=== PATIENT | female | born 1945 | race Caucasian/White ===

== ENCOUNTER → 2019-01-12 | Outpatient (CLI) | payer MEDICARE, MEDICAID ==
--- NOTE | 2019-01-12 21:54 | RAD ---
Exam: Left ankle 3 views. Left foot 3 views. INDICATION: Injury TECHNIQUE: Frontal, lateral and oblique views of the left foot and left ankle. Comparisons: None FINDINGS: Foot: Bone mineralization is normal. No acute or healed fractures. Soft tissues are unremarkable. Joint spaces are well-maintained. Ankle: Bone mineralization is normal. Chronic fracture deformity at the distal tibial diaphysis is noted. No acute fractures are seen. Soft tissues are unremarkable. IMPRESSION: 1. No acute osseous abnormality of the left foot. 2. No acute osseous abnormality of the left ankle. Electronically signed by: Gisela Mar MD (01/12/2019 9:52 PM) [facility]
== END | disposition home or self-care (01) ==
LOC: RAD 18:50
PROVIDERS: ATTEND Family Medicine
DX: M84.462A Pathological fracture, left tibia, initial encounter for fracture (principal)
CPT/HCPCS: 73610; 73630

== ENCOUNTER → 2020-11-15 | Outpatient (CLI) | payer MEDICAID, MEDICARE ==
[~2020-11-15] MED LIST: IBUP-1027 PO; INSU100V37 SQ; LEVO50TA5 PO; LISI1TAB39 PO; SEMA0.25 SQ
[2020-11-15 14:01] LABS: BASO # 0.1 x10^3/uL (0.0-0.2); BASO % 1 % (0-3); EOS # 0.2 x10^3/uL (0.0-0.7); EOS % 2 % (0-3); HEMATOCRIT 40.7 % (36.0-47.0); HEMOGLOBIN 13.9 g/dL (12.0-15.5); LYMPH # 2.6 x10^3/uL (1.0-4.8); LYMPH % 24 % (24-48); MEAN CORPUSCULAR HEMOGLOBIN 30 pg (25-35); MEAN CORPUSCULAR HGB CONC 34 g/dL (31-37); MEAN CORPUSCULAR VOLUME 87 fL (79-100); MONO # 0.7 x10^3/uL (0.0-1.1); MONO % 6 % (0-9); NEUT # 7.2 x10^3/uL (1.8-7.7); NEUT % 67 % (31-73); PLATELET COUNT 176 x10^3/uL (140-400); RED BLOOD COUNT 4.71 x10^6/uL (3.50-5.40); RED CELL DISTRIBUTION WIDTH 13.3 % (11.5-14.5); WHITE BLOOD COUNT 10.8 x10^3/uL (4.0-11.0)
[2020-11-15 14:10] LABS: PROTHROMBIN TIME PATIENT 13.1 SEC (11.7-14.0)
[2020-11-15 14:14] LABS: ALBUMIN 3.2 g/dL (3.4-5.0); ALBUMIN/GLOBULIN RATIO 0.7 (1.0-1.7); CALCIUM 9.2 mg/dL (8.5-10.1); CREATININE 1.6 mg/dL (0.6-1.0); GFR 31.7; POTASSIUM 4.1 mmol/L (3.5-5.1); TOTAL BILIRUBIN 0.4 mg/dL (0.2-1.0); TOTAL PROTEIN 7.5 g/dL (6.4-8.2)
[2020-11-16 07:18] LABS: HEMOGLOBIN A1C 5.2 % (4.8-5.6)
== END ==
LOC: SURGPAT 13:27
PROVIDERS: ATTEND Specialist
DX: Z01.812 Encounter for preprocedural laboratory examination (principal); Z20.822 Contact with and (suspected) exposure to COVID-19; C50.911 Malignant neoplasm of unspecified site of right female breast; C77.3 Secondary and unspecified malignant neoplasm of axilla and upper limb lymph nodes; Z79.899 Other long term (current) drug therapy
CPT/HCPCS: 36415; 80053; 83036; 85025; 85610; 85730; U0003; U0005

== ENCOUNTER 2020-11-20 10:49 | Day surgery (SDC) | payer MEDICARE ==
[2020-11-15 13:57] VITALS: BP 90/50
[~2020-11-20] VITALS: Ht 167.6 cm; Wt 100.0 kg
[~2020-11-20 10:49] MED LIST changes: +HYDROmorphone 2 MG/ML VIAL IVP PRN; -IBUP-1027 PO; -INSU100V37 SQ; +IV RINGERS,LACTATED 1000ML 1,000 ML IV SCH; -LEVO50TA5 PO; -LISI1TAB39 PO; +PROCHLORPERAZINE 10 MG/2 ML VIAL. IVP PRN; +ceFAZolin SODIUM IV Push 1 GM VIAL. IVP PRN; +fentaNYL PF VIAL 100 MCG/2 ML VIAL IVP PRN
[2020-11-20] MEDS ORDERED: LIDOCAINE 2% PF 5 ML VIAL. ONE (10:55)
[2020-11-20] MEDS ORDERED: fentaNYL PF VIAL 100 MCG/2 ML VIAL ONE ×2 (10:55→17:03)
[2020-11-20] MEDS ORDERED: DEXAMETHASONE SOD PHOS 4 MG/ML VIAL ONE (10:55)
[2020-11-20] MEDS ORDERED: PROPOFOL 10 MG/ML (20ML) VIAL. IV ONE (10:55)
[2020-11-20] MEDS ORDERED: FAMOTIDINE 20 MG/2 ML VIAL ONE (10:55)
[2020-11-20] MEDS ORDERED: LISI1TAB20 PO (11:21)
[2020-11-20] MEDS ORDERED: LEVO50TA5 PO (11:21)
[2020-11-20] MEDS ORDERED: INSU100V37 SQ (11:21)
[2020-11-20 11:23] VITALS: BP 129/56
[2020-11-20] MEDS ORDERED: INSULIN LISPRO 100 UNIT/ML 3ML VIAL for OP,RR ONLY. SQ PRN (11:30)
[2020-11-20] MEDS ORDERED: DEXTROSE 50% 25 GM / 50ML DISP.SYRIN. IV ONE ×4 (11:35→14:18)
--- NOTE | 2020-11-20 12:30 | PDOC ---
SURGICAL PROGRESS NOTE DATE: 11/20/20 TIME: 12:29 No change in dictate H&P. done todeay 10/20/2020 Vital Signs Vital Signs Date Time Temp Pulse Resp B/P (MAP) Pulse Ox O2 Delivery O2 Flow Rate FiO2 11/20/20 11:26 98.0 91 20 129/56 92 Room Air 98.0 Labs Laboratory Tests Test 11/20/20 11:29 11/20/20 11:57 Glucose (Fingerstick) 56 mg/dL (70-99) 90 mg/dL (70-99) Laboratory Tests Test 11/20/20 11:29 11/20/20 11:57 Glucose (Fingerstick) 56 mg/dL (70-99) 90 mg/dL (70-99) Justicifation of Admission Dx: Justifications for Admission: Justification of Admission Dx: Yes ARABELLA REIS MD Nov 20, 2020 12:30
--- NOTE | 2020-11-20 12:35 | PDOC ---
SURGICAL PROGRESS NOTE DATE: 11/20/20 TIME: 12:30 Subjective Op Note: Surgeon...............................Tesfaye Pre and post op diag.............cancer right breast with mets to axillary node anesthesia...........................general Procedure............................right partial mastectomy and axillary dissection. Drains..................................large Geoffrey drain Fluids..................................see anesthesia sheet Blood loss............................30cc Condition..............................Condition Vital Signs Vital Signs Date Time Temp Pulse Resp B/P (MAP) Pulse Ox O2 Delivery O2 Flow Rate FiO2 11/20/20 11:26 98.0 91 20 129/56 92 Room Air 98.0 Labs Laboratory Tests Test 11/20/20 11:29 11/20/20 11:57 Glucose (Fingerstick) 56 mg/dL (70-99) 90 mg/dL (70-99) Laboratory Tests Test 11/20/20 11:29 11/20/20 11:57 Glucose (Fingerstick) 56 mg/dL (70-99) 90 mg/dL (70-99) Justicifation of Admission Dx: Justifications for Admission: Justification of Admission Dx: Yes ARABELLA REIS MD Nov 20, 2020 12:35
--- NOTE | 2020-11-20 13:19 | HP ---
ADMIT DATE: 11/20/2020 HISTORY OF PRESENT ILLNESS: She is referred because of a right breast mass, which she states has been there for about 2 months. 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 Martell because of the mass. She also had a sonogram and mammogram, which revealed a mass and also axillary node enlargement. She did have a biopsy of this and it proved to be cancer in the node and the mass. She has no real symptoms from this at present. PAST MEDICAL HISTORY: Shows that she has had a cholecystectomy. She does have diabetes and takes insulin for that and takes lisinopril for hypertension. ALLERGIES: INCLUDE CODEINE, WHICH SHE STATES MAKES HER SOMEWHAT LIGHTHEADED. She otherwise did well with it. SOCIAL HISTORY: Shows that she does not use illicit drugs, smoke or drink alcoholic beverages. REVIEW OF SYSTEMS: Except for the inability to see, she can get around and walk and has no other major problems. PHYSICAL EXAMINATION: HEAD, EYES, EARS, NOSE AND THROAT: Grossly normal. 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 Other parameters were unremarkable. CHEST: Clear bilaterally to auscultation. HEART: No murmurs, heaves, or friction rubs were noted with the heart and the rate was 70 beats per minute and was regular. BREASTS: The left breast and axillary area was negative. The right breast did have about a 4-6 cm in diameter clinically a mass in the upper outer quadrant of the right breast and the biopsy site was noted. The nodes are not equally palpable at this point. ABDOMEN: Grossly normal. No masses. She has a scar of previous surgery and looked like it was an open cholecystectomy that she had. EXTREMITIES: Grossly unremarkable. IMPRESSION: 1. Hypertension. 2. Diabetes. 3. Cancer of the right breast. PLAN: We will plan per the patient's request, a partial mastectomy and axillary dissection. KETAN/FIFI/HORACIO DR: Tomas TID: [id number] MTDD
[2020-11-20] MEDS ORDERED: PHENYLEPHRINE in 0.9% NACL PF 1 MG/10 ML SYRINGE. IV ONE (13:34)
[2020-11-20] MEDS ORDERED: ePHEDrine PF IN SALINE 50 MG/10 ML SYRINGE. IV ONE (14:02)
[2020-11-20] MEDS ORDERED: SEVOFLURANE > 120 MINUTES. IH ONE (16:32)
--- NOTE | 2020-11-20 16:51 | DISCH ---
DISCHARGE INSTRUCTIONS Condition on Discharge Condition on Discharge: Stable Activity After Discharge Activity Instructions for Disc: Avoid exertion Diet after Discharge Additional Diet Restrictions: as pre op Wound Incision Care Other wound/incision instructi: . check [id number] directed. Follow-Up Follow up with: call anc make appt to see me Thursday..6 days. ARABELLA REIS MD Nov 20, 2020 16:51
[2020-11-20] MEDS ORDERED: IBUP-1027 PO (17:05)
[2020-11-20] MEDS: fentaNYL PF VIAL 100 MCG/2 ML VIAL IVP PRN ×2 (17:06→17:29)
[2020-11-20] MEDS ORDERED: IBUPROFEN 400 MG TABLET. PO ONE (17:30)
[2020-11-20] MEDS ORDERED: MORPHINE SULFATE 2 MG/ML INJ. ONE (17:44)
[2020-11-20] MEDS: MORPHINE SULFATE 2 MG/ML INJ. IVP PRN ×2 (17:47→17:58)
[2020-11-20 18:14] VITALS: BP 130/63
--- NOTE | 2020-11-21 12:09 | OP ---
DATE OF SURGERY: 11/20/2020 SURGEON: Charles Carlin MD PREOPERATIVE DIAGNOSIS: Biopsy-proven carcinoma of the right breast with metastasis to the axillary lymph node on the right. ANESTHESIA: General. PROCEDURE: Partial mastectomy with axillary dissection. TECHNIQUE: Under general anesthesia, the patient was properly prepped and draped in routine fashion. The arm was completely prepped and we were prepared to do the ramiro maneuver if possible. The lesion is being about 4-6 cm in the upper outer quadrant of the right breast. We made an incision in an oblique fashion following the skin lines in the extreme upper outer quadrant on the right breast with standing to the axilla. We are going to do the axillary dissection and therefore we extended the incision. We did this with a 15 blade went into the subQ. We did in a fusiform fashion, taking some of the skin over the mass as we did not want to have any infiltration into the subQ and skin left. As such, we resected that, we pulled up and then used cautery, mostly for the dissection going completely around the mass. We did feel a second mass more medial and then entirely took it along with the breast tissue. We removed almost the upper outer quadrant of the breast. We got down to the muscle and went over laterally to the edge of the pectoralis major muscle. The lesion has been totally removed and still attached. We then identified the border of the pectoralis major muscle and then the pectoralis minor. We did the dissection, taking the lymph nodes from below the axillary vein and we saw we did not dissect it out. We used the Harmonic scalpel and clips to divide small vessels and slowly removed the axillary contents. We then removed the lesion from the lateral chest wall and slowly dissected free the axillary contents. We did identify the long thoracic and thoracodorsal nerves, which were not damaged and were functioning at the end of the case. We slowly removed all of the axillary contents again using the Harmonic scalpel and clamping with small vessels. The lesion in the axillary contents now totally removed. We inspected the area and small bleeders were cauterized. The nerves were left intact. We then placed a large Geoffrey drain, one going laterally to the axilla and one a little more medially going up into the breast that we took so much of the breast tissue out. We approximated the breast tissue with interrupted 3-0 Vicryl and sutured this to the fascia of the muscle as best we could to help obliterate the space. These drains were sutured in place using 2-0 silk and we then proceeded to close the wound. We used 3-0 Vicryl and 4-0 Vicryl for the deeper subcutaneous and deep dermis and then used a skin stapler for the skin. The apparatus of the suction worked well as there was good adherence of the skin flaps down to the chest wall. Sterile dressing was applied and the procedure was then terminated. The wound was then inspected and all was well. The blood loss was about 40-50 mL. Drains were the 2 large Geoffrey drains. The fluids given can be obtained from the anesthesia sheet and the condition of the patient is satisfactory as she has returned to the recovery room. KETAN/CANDY/CONNER DR: Tomas TID: [id number] MTDD
--- NOTE | 2020-11-23 18:06 | PATHOLOGY ---
[facility] Accession Number: [id number] . 01 Material submitted: . PART A: breast - RIGHT PARTIAL MASTECTOMY. Modifiers: right PART B: axillary tail of breast - RIGHT AXILLARY CONTENTS. Modifiers: right . 02 Diagnosis: A. Segment of breast tissue and attached axillary lymph nodes, right partial mastectomy: - Invasive ductal carcinoma, histologic grade 3, forming a tumor mass measuring 4.0 cm in greatest dimension. - Invasive carcinoma is approximately 1.5 mm from the closest (deep) margin of resection. - Metastatic carcinoma involving one of nine axillary lymph nodes (/). - No lymphovascular tumor invasion identified. - Fibrocystic changes with focal mild to moderate ductal epithelial hyperplasia. - Atypical lobular hyperplasia, focal. . B. Adipose tissue and lymph nodes, right axillary contents: - Five lymph nodes negative for tumor (0/5). . 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 . Surgical Pathology Cancer Case Summary INVASIVE CARCINOMA OF THE BREAST: Resection . Procedure ___ Other: Partial mastectomy . Specimen Laterality ___ Right . + Tumor Site + ___ Other: Outer breast . Tumor Size ___ Greatest dimension of largest invasive focus >1 mm: 40 mm . Histologic Type ___ Invasive carcinoma of no special type (ductal) . Histologic Grade (Granite Canon Histologic Score) Glandular (Acinar)/Tubular Differentiation ___ Score 3 (<10% of tumor area forming glandular/tubular structures) . Nuclear Pleomorphism ___ Score 3 (vesicular nuclei, often with prominent nucleoli, exhibiting marked variation in size and shape, occasionally with very large and bizarre forms) . Mitotic Rate ___ Score 3 . Overall Grade ___ Grade 3 (scores of 8 or 9) . + Tumor Focality + ___ Single focus of invasive carcinoma . Ductal Carcinoma In Situ (DCIS) ___ Not identified . Margins Invasive Carcinoma Margins ___ Uninvolved by invasive carcinoma Distance from closest margin: ___ Specify 1.5 mm . + Specify closest margin(s): Deep margin . + Distance from other margins: + ___ Superior: 3 mm . Regional Lymph Nodes ___ Involved by tumor cells Number of Lymph Nodes with Macrometastases (>2 mm): 1 . Size of Largest Metastatic Deposit: 5.5 mm . Extranodal Extension ___ Not identified . Total Number of Lymph Nodes Examined: 14 . Treatment Effect in the Breast ___ No known presurgical therapy . + Lymphovascular Invasion + ___ Not identified . Pathologic Stage Classification (pTNM, AJCC 8th Edition) Primary Tumor (pT) ___ pT2: Tumor >20 mm but less than or equal to 50 mm in greatest dimension . Regional Lymph Nodes (pN) ___ pN1a: Metastases in 1 to 3 axillary lymph nodes, at least 1 metastasis larger than 2.0 mm . + Additional Pathologic Findings + Specify: See diagnoses . + Ancillary Studies + ___ Breast Biomarker Testing Performed on Previous Biopsy + Testing Performed on Case Number: [id number] + Estrogen Receptor (ER) + ___ Positive (greater than 10% of cells demonstrate nuclear positivity) 83.0% + Progesterone Receptor (PgR) + ___ Positive 54.1% . + HER2 + ___ Negative (Score 1+) . + ___ Ki-67 percentage of positive nuclei: 55.0% . + Microcalcifications + ___ Present in invasive carcinoma + ___ Present in non-neoplastic tissue . (JPM:pramod; 11/23/2020) [facility] [place] 11/23/2020 1715 Local . 02 Electronically signed: . Luis Xie MD, Pathologist NPI- [id number] . 01 Gross description: . A. The specimen is received in formalin, labeled "Joana Russo, right partial mastectomy" and consists of 276 g unoriented partial lumpectomy (9.5 x 7.7 x 5.2 cm) which is surfaced with an unremarkable daigle ellipse of skin (9.6 x 0.7 cm). The specimen also displays an attached portion of axillary tail (16.0 x 8.0 x 0.2 cm). The specimen is oriented using the skin as the anterior surface and the axillary tail as the lateral aspect. No needle localization wire is in place. The margins are inked as follows: anterior green, inferior blue, superior red, lateral (including axillary tail) orange, medial yellow and posterior black. Sectioning reveals a daigle-pink, focally well-circumscribed and focally ill-defined, slightly whorled mass (4.0 cm superior to inferior x 3.7 cm medial to lateral x 3.0 cm superficial to deep) that contains a silver metallic spiral hooked biopsy clip (0.2 x 0.2 x 0.2 cm). The mass abuts and is suspicious for involving the deep and inferior margins, and comes to within 0.2 cm from the superior margin, 1.9 cm from the medial margin, 2.3 cm from the lateral margin, and 1.1 cm from the superficial margin. The remaining cut surfaces display approximately 10% fibrous tissue. Ten candidate lymph nodes (ranging from 0.8 x 0.7 x 0.3 cm to 2.1 x 1.5 x 0.9 cm) are identified, 1 of which is grossly positive. Photographs are taken and premium service representative sections to include the entirety of the biopsy cavity and candidate lymph nodes are submitted as follows: A1-A2: Deep margin nearest mass, represented A3-A4: Anterior margin nearest mass, represented A5-A6: Biopsy cavity, entirely submitted A7-A8: Superior margin nearest mass, represented A9-A10: Medial margin nearest mass, represented A 11: Lateral margin nearest mass, represented A12-A16: Mass, represented A17: 1 grossly positive candidate lymph node, represented A18-A19: 1 serially sectioned candidate lymph node, entirely submitted A20-A21: 1 serially sectioned candidate lymph node, entirely submitted A22-A25: 1 serially sectioned candidate lymph node, entirely submitted A26-A30: 1 sectioned candidate lymph node within each cassette, entirely submitted A31-A33: 1 serially sectioned candidate lymph node, entirely submitted The cold ischemic time and time placed in formalin are not provided. The approximate total time in formalin is greater than 6 and less than 72 hours. . B. The specimen is received in formalin, labeled "Joana Russo, right axillary contents" and consists of multiple irregular, disrupted fatty tissues (4.5 x 3.3 x 1.6 cm cm in aggregate) that contains 5 candidate lymph nodes ranging from 0.5 x 0.4 x 0.2 cm to 1.3 x 1.2 x 0.7 cm, the largest of which is previously, partially disrupted. Sectioning reveals unremarkable cut surfaces. Laborer Syrup Machine sections to include the entirety of the candidate lymph nodes are submitted as follows: B1-B2: 1 serially sectioned candidate lymph node within each cassette, entirely submitted B3: 2 intact candidate lymph nodes, differentially inked black and red, entirely submitted B4: 1 serially sectioned candidate lymph node, entirely submitted ([place]-SPARKS; 11/21/2020) DKA/DKA 11/21/2020 1838 Local . 02 Pathologist provided ICD-10: C50.911, C77.3, N60.11, N62, N60.82 . 02 CPT . 863934, 551816 Specimen Comment: A courtesy copy of this report has been sent to [phone] Specimen Comment: Report sent to Specimen Comment: A duplicate report has been generated due to demographic updates. Performed at: 01 [facility] [address] [facility] [address] [facility] [address], [place] [id number] MD Enrike Hong MD Phone: [phone] Performed at: 02 [facility] [address] [place], [place] [id number] MD Luis Xie MD Phone: [phone]
== END 2020-11-20 18:45 | disposition home or self-care (01) ==
LOC: SURG 10:49
PROVIDERS: ATTEND Specialist
DX: C50.911 Malignant neoplasm of unspecified site of right female breast (principal); C77.3 Secondary and unspecified malignant neoplasm of axilla and upper limb lymph nodes; N60.11 Diffuse cystic mastopathy of right breast; N60.82 Other benign mammary dysplasias of left breast; N62 Hypertrophy of breast; I10 Essential (primary) hypertension; E66.9 Obesity, unspecified; E03.9 Hypothyroidism, unspecified; E11.9 Type 2 diabetes mellitus without complications; F41.9 Anxiety disorder, unspecified; F32.9 Major depressive disorder, single episode, unspecified; Z90.49 Acquired absence of other specified parts of digestive tract; Z98.890 Other specified postprocedural states; Z79.899 Other long term (current) drug therapy; Z79.4 Long term (current) use of insulin; Z88.5 Allergy status to narcotic agent
CPT/HCPCS: 19301; 82962; A4930; A6253; A6402; A6403; A6457; J0690; J1100; J2270; J2370; J2704; J3010; 88305; 88309; J3490

== ENCOUNTER → 2021-01-14 | Outpatient (CLI) | payer MEDICARE ==
[~2021-01-14] MED LIST changes: -HYDROmorphone 2 MG/ML VIAL IVP PRN; +IBUP-1027 PO; +INSU100V37 SQ; -IV RINGERS,LACTATED 1000ML 1,000 ML IV SCH; +LEVO50TA5 PO; +LISI1TAB39 PO; -PROCHLORPERAZINE 10 MG/2 ML VIAL. IVP PRN; -ceFAZolin SODIUM IV Push 1 GM VIAL. IVP PRN; -fentaNYL PF VIAL 100 MCG/2 ML VIAL IVP PRN
== END ==
LOC: LAB 13:48
PROVIDERS: ATTEND Specialist
DX: Z01.812 Encounter for preprocedural laboratory examination (principal); Z20.822 Contact with and (suspected) exposure to COVID-19
CPT/HCPCS: U0003; U0005

== ENCOUNTER 2021-01-15 08:50 | Day surgery (SDC) | payer MEDICARE ==
[~2021-01-15] VITALS: Ht 167.6 cm; Wt 100.0 kg
[~2021-01-15 08:50] MED LIST changes: +HYDROmorphone 2 MG/ML VIAL IVP PRN; +IV RINGERS,LACTATED 1000ML 1,000 ML IV SCH; +MORPHINE SULFATE 2 MG/ML INJ. IVP PRN; +PROCHLORPERAZINE 10 MG/2 ML VIAL. IVP PRN; +ceFAZolin SODIUM IV Push 1 GM VIAL. IVP PRN; +fentaNYL PF VIAL 100 MCG/2 ML VIAL IVP PRN
[2021-01-15 09:21] VITALS: BP 159/76
[2021-01-15] MEDS ORDERED: INSULIN LISPRO 100 UNIT/ML 3ML VIAL for OP,RR ONLY. SQ PRN (09:30)
[2021-01-15] MEDS ORDERED: BUPIVACAINE-EPI 0.5% 30 ML VIAL KIT. ONE (09:48)
[2021-01-15] MEDS ORDERED: HEPARIN PF 500 UNIT/5 ML DISP.SYRIN. IVP ONE ×2 (09:48→11:21)
[2021-01-15] MEDS ORDERED: IOHEXOL 300 MG/ML 50 ML VIAL. ONE (09:48)
[2021-01-15] MEDS ORDERED: LIDOCAINE 2% PF 5 ML VIAL. ONE (10:07)
[2021-01-15] MEDS ORDERED: DEXAMETHASONE SOD PHOS 4 MG/ML VIAL ONE (10:07)
[2021-01-15] MEDS ORDERED: PROPOFOL 10 MG/ML (20ML) VIAL. IV ONE ×2 (10:07→11:24)
[2021-01-15] MEDS ORDERED: ONDANSETRON PF 4 MG/2 ML VIAL. ONE (10:08)
--- NOTE | 2021-01-15 10:18 | PDOC1 ---
History and Physical Date of Admission Date of Admission DATE: 01/15/21 TIME: 10:16 Identification/Chief Complaint Chief Complaint ca right breast and need for chemorx History of Present Illness History of Present Illness post mastectom nd the need for chemorx Past Medical History Endocrine: Diabetes Past Surgical History Past Surgical History: Cholecystectomy, Mastectomy Social History Smoke: No ALCOHOL: none Drugs: None Current Medications Current Medications Current Medications Fentanyl Citrate (Fentanyl 2ml Vial) 25 mcg PRN Q5MIN PRN IVP MILD PAIN 1-3; Start 01/15/21 at 06:00; Stop 01/16/21 at 05:59 Fentanyl Citrate (Fentanyl 2ml Vial) 50 mcg PRN Q5MIN PRN IVP MODERATE PAIN 4- 6; Start 01/15/21 at 06:00; Stop 01/16/21 at 05:59 Morphine Sulfate (Morphine Sulfate) 1 mg PRN Q10MIN PRN IVP SEVERE PAIN 7-10; Start 01/15/21 at 06:00; Stop 01/16/21 at 05:59 Ringer's Solution 1,000 ml @ 30 mls/hr Q24H IV ; Start 01/15/21 at 06:00; Stop 01/15/21 at 17:59 Hydromorphone HCl (Dilaudid) 0.5 mg PRN Q10MIN PRN IVP SEVERE PAIN 7-10, 2nd CHOICE; Start 01/15/21 at 06:00; Stop 01/16/21 at 05:59 Prochlorperazine Edisylate (Compazine) 5 mg PACU PRN PRN IVP NAUSEA, MRX1; Start 01/15/21 at 06:00; Stop 01/16/21 at 05:59 Cefazolin Sodium (Ancef) 1 gm 1X PREOP PRN IVP PRIOR TO PROCEDURE; Start 01/15/21 at 06:00; Stop 01/15/21 at 18:00 Insulin Human Lispro (HumaLOG VIAL for OP,RR ONLY) 0-10 units PRN Q1HR PRN SQ PER PROTOCOL; Start 01/15/21 at 09:30; Stop 01/16/21 at 09:29 Heparin Sodium (Porcine) (Hep Lock Adult) 500 unit STK-MED ONCE IVP ; Start 01/15/21 at 09:48; Stop 01/15/21 at 09:48; Status DC Bupivacaine HCl/ Epinephrine Bitart (Sensorcain-Epi 0.5% Kit) 30 ml STK-MED ONCE .ROUTE ; Start 01/15/21 at 09:48; Stop 01/15/21 at 09:48; Status DC Iohexol (Omnipaque 300 Mg/ml) 50 ml STK-MED ONCE .ROUTE ; Start 01/15/21 at 09:48; Stop 01/15/21 at 09:48; Status DC Propofol (Diprivan) 200 mg STK-MED ONCE IV ; Start 01/15/21 at 10:07; Stop 01/15/21 at 10:07; Status DC Lidocaine HCl (Lidocaine Pf 2% Vial) 5 ml STK-MED ONCE .ROUTE ; Start 01/15/21 at 10:07; Stop 01/15/21 at 10:08; Status DC Dexamethasone Sodium Phosphate (Decadron) 4 mg STK-MED ONCE .ROUTE ; Start 01/15/21 at 10:07; Stop 01/15/21 at 10:08; Status DC Ondansetron HCl (Zofran) 4 mg STK-MED ONCE .ROUTE ; Start 01/15/21 at 10:08; Stop 01/15/21 at 10:08; Status DC Active Scripts Active Reported Ibuprofen 400 Mg Tablet 400 Mg PO PRN Q6HRS PRN Tresiba (Insulin Degludec) 100 Unit/1 Ml Vial 74 Unit SQ DAILY Lisinopril-Hctz 20-25 Mg Tab (Lisinopril/Hydrochlorothiazide) 1 Each Tablet 1 Tab PO DAILY Levothyroxine Sodium 50 Mcg Tablet 1 Tab PO DAILY Ozempic (Semaglutide) 0.25 Mg/0.2 Ml Pen.injctr 0.25 Mg SQ WEEKLY Allergies Allergies: Coded Allergies: codeine (Verified Adverse Reaction, Intermediate, pt is blind but has seen nice colors with this med, 01/15/21) Physical Exam Lungs: Clear to auscultation Breasts: Surgical scars noted (left mwastectomy) Abdomen: Normal bowel sounds Vitals Vitals Vital Signs Date Time Temp Pulse Resp B/P (MAP) Pulse Ox O2 Delivery O2 Flow Rate FiO2 01/15/21 09:21 97.1 96 20 97 97.1 01/15/21 09:14 159/76 Room Air Labs Labs Laboratory Tests Test 01/15/21 09:26 Glucose (Fingerstick) 115 mg/dL (70-99) Laboratory Tests Test 01/15/21 09:26 Glucose (Fingerstick) 115 mg/dL (70-99) VTE Prophylaxis Ordered VTE Prophylaxis Devices: No VTE Pharmacological Prophylaxi: No Justifications for Admission Other Justification ARABELLA REIS MD Jan 15, 2021 10:18
--- NOTE | 2021-01-15 10:21 | PDOC ---
SURGICAL PROGRESS NOTE DATE: 01/15/21 TIME: 10:21 Vital Signs Vital Signs Date Time Temp Pulse Resp B/P (MAP) Pulse Ox O2 Delivery O2 Flow Rate FiO2 01/15/21 09:21 97.1 96 20 97 97.1 01/15/21 09:14 159/76 Room Air Labs Laboratory Tests Test 01/15/21 09:26 Glucose (Fingerstick) 115 mg/dL (70-99) Laboratory Tests Test 01/15/21 09:26 Glucose (Fingerstick) 115 mg/dL (70-99) Justicifation of Admission Dx: Justifications for Admission: Justification of Admission Dx: Yes ARABELLA REIS MD Jan 15, 2021 10:21
--- NOTE | 2021-01-15 10:23 | PDOC ---
SURGICAL PROGRESS NOTE DATE: 01/15/21 TIME: 10:22 Op Note: Surgeon......................................Tesfaye Pre op diag..................................CA right breast post op diag................................same Anesthesia..................................general Procedure...................................port-a- cath Drains........................................none Fluids.........................................see anesthesia sheet Blood loss...................................10cc Condition....................................satisfactory Vital Signs Vital Signs Date Time Temp Pulse Resp B/P (MAP) Pulse Ox O2 Delivery O2 Flow Rate FiO2 01/15/21 09:21 97.1 96 20 97 97.1 01/15/21 09:14 159/76 Room Air Labs Laboratory Tests Test 01/15/21 09:26 Glucose (Fingerstick) 115 mg/dL (70-99) Laboratory Tests Test 01/15/21 09:26 Glucose (Fingerstick) 115 mg/dL (70-99) Justicifation of Admission Dx: Justifications for Admission: Justification of Admission Dx: Yes ARABELLA REIS MD 2, 2021 10:23
[2021-01-15] MEDS ORDERED: PHENYLEPHRINE in 0.9% NACL PF 1 MG/10 ML SYRINGE. IV ONE (10:39)
[2021-01-15] MEDS ORDERED: fentaNYL PF VIAL 100 MCG/2 ML VIAL ONE (12:21)
[2021-01-15] MEDS: fentaNYL PF VIAL 100 MCG/2 ML VIAL IVP PRN ×2 (12:23→12:33)
--- NOTE | 2021-01-15 12:42 | RAD ---
EXAM: XR CHEST 1V 01/15/2021 12:20 PM CLINICAL INDICATION: Post Port-A-Cath placement COMPARISON: None TECHNIQUE: AP upright view of the chest FINDINGS: A left Port-A-Cath tip projects over the superior cavoatrial junction. The heart is normal in size. Lungs are well-expanded. No consolidation, pleural effusion, or pneumothorax. No acute osseo us abnormality. There are surgical clips in the right chest wall. IMPRESSION: Left Port-A-Cath in appropriate position. No pneumothorax. Electronically signed by: Matilde Diamond MD (01/15/2021 12:39 PM) [id number]
[2021-01-15] MEDS ORDERED: IBUPROFEN 400 MG TABLET. PO ONE (12:45)
[2021-01-15 12:55] VITALS: BP 132/76
--- NOTE | 2021-01-15 19:46 | OP ---
DATE OF SURGERY: 01/15/2021 SURGEON: Charles Carlin MD PREOPERATIVE DIAGNOSIS: Carcinoma of the right breast with the need for chemotherapy. POSTOPERATIVE DIAGNOSES: Carcinoma of the right breast with the need for chemotherapy. ANESTHESIA: General. PROCEDURE: Replacement of Port-A-Cath on the left. TECHNIQUE: Under general anesthesia, the patient was properly prepped and draped in routine fashion. Both right and left sides were prepped and draped, so that if we could not get in on one side, we can do on the other. She has had the mastectomy on the right and therefore, we tried to put the Port-A-Cath on the left. With the patient in the supine position, we made a small incision in the subclavicular area and placed in the needle. With the patient now in Trendelenburg position at a 30-degree angle toward the sternal notch, we placed a needle under the clavicle and opened the 1st rib and the vein was punctured. We then aspirated back blood, passed a guidewire into this area and removed the needle. We got a C-arm to prove that the guidewire went down into the superior vena cava. We then made an incision and spread it with clamps and then passed the trocar and dilator over the guidewire. We placed this in, removing the guidewire and then the trocar and leaving the sheath in place. We placed the catheter in this area into the superior vena cava. We removed the sheath and then injected radioactive dye to make sure that the catheter was in a proper location in the superior vena cava. Having done this, we then flushed it with heparin and made a small incision in the upper left chest where the port would be. We did this with a 15 blade. We then went into the subQ and using cautery and also finger dissection made a pocket inferior to this. We then passed the trocar on the end of the catheter and placed it from the entrance site and brought it out through the superior portion of the port site. This having been done, we then injected more dye and pulled the catheter back so that it was in the proper location. We got the measurement, cut the catheter at appropriate place and then placed the locking mechanism over the catheter and then placed the catheter into the nipple of the Port-A-Cath. The locking mechanism was then pushed back on it, clicked in place. The Port-A-Cath was placed in this pocket. It fit well and was in good location. We checked the catheter, it was in same location in the superior vena cava. We then used 2-0 silk to suture the catheter in place in the right and left sides. We then placed a King needle into the port, aspirated venous blood with ease and then flushed it with heparinized saline solution about 5-6 mL. This having been done, we then inspected the area, all was well and the procedure was terminated. There were no respiratory problems during the procedure. When the guidewire was in the proximal part, she did have just a few PVCs, which went away as we pulled the guidewire back. Catheter sutured in place. We then proceeded to close the wounds. We closed the subQ and the port site with interrupted 4-0 Vicryl and the skin was closed in both locations using the subcuticular 5-0 Vicryl. Sterile Tegaderm dressings were applied and the procedure was terminated. Chest was clear postprocedure per auscultation. We will await the chest x-ray. Just sterile Tegaderm dressings have been applied. The procedure was terminated. The blood loss was probably 5-10 mL. Fluids given can be obtained from the anesthesia sheet. No drains were used and the condition of the patient satisfactory as she has returned to the recovery room. JOSE DR: Tomas TID: [id number]
== END 2021-01-15 13:45 | disposition home or self-care (01) ==
LOC: SURG 08:50
PROVIDERS: ATTEND Specialist
DX: Z45.2 Encounter for adjustment and management of vascular access device (principal); C50.911 Malignant neoplasm of unspecified site of right female breast; I10 Essential (primary) hypertension; E11.9 Type 2 diabetes mellitus without complications; E66.9 Obesity, unspecified; E03.9 Hypothyroidism, unspecified; F41.9 Anxiety disorder, unspecified; F32.9 Major depressive disorder, single episode, unspecified; Z79.899 Other long term (current) drug therapy; Z79.84 Long term (current) use of oral hypoglycemic drugs; Z90.49 Acquired absence of other specified parts of digestive tract; Z98.890 Other specified postprocedural states
CPT/HCPCS: 36578; 71045; 82962; A4209; A4213; A4215; A4930; A6257; A6258; A6402; C1788; J0690; J1100; J1642; J2370; J2405; J2704; J3010; Q9967; 76000